=== PATIENT | female | born 1980 | race African-American/Black ===

== ENCOUNTER 2023-02-02 01:48 | Day surgery (SDC) | payer OTHER, SELFPAY ==
[2023-02-01 09:22] VITALS: BMI 40.6
--- NOTE | 2023-02-01 09:27 | PC.NURSE ---
Report to the Outpatient Waiting Room, entrance under the green pavilion located off [facility], at time 1300 on date 02/02/23. Planned Procedure Time: 1500. Time changes happen often and if your time is changed the preop area will call you the afternoon before. - You and your visitor will be asked to self-screen and do not enter if you have any COVID symptoms. - A mask is optional within the hospital at this time. Patients may have clear liquids (water, carbonated beverages, clear teas, apple juice) until 3 hours prior to surgery with a maximum of 20 ounces. - No food from midnight until time of surgery Take the following medications with a SIP of water the morning of surgery: N/A DO NOT STOP ANY OF YOUR OTHER PRESCRIPTION MEDICATIONS PRIOR TO SURGERY ?EXCEPT THE FOLLOWING Medications to discontinue per physician: N/A Date to take last dose: N/A Please no make-up, nail yoruba, hairspray, perfume, deodorant, or body powder the day of surgery. No jewelry (including any body piercings) or valuables the day of surgery, leave them at home. Please take a shower or bath the night before, or the morning of, surgery with an antibacterial soap. Wear comfortable, loose fitting clothing. - Jewelry must be removed prior to entering the operating room. Rings and piercings that are not removed may be cut off. - The hospital will not accept responsibility for valuables. - Please leave all valuables, including medications, at home the day of surgery. If you are going home after surgery, a licensed rickshaw driver must drive you home. - NO public transportation without another adult if you receive anesthesia. - We recommend that an adult stay with you for 24 hours following discharge. - We also recommend that you do not drive, make important decision, drink alcoholic beverages, or take any drugs that were not prescribed by your health care provider for at least 24 hours after your discharge time. Follow any additional instructions given to you from your surgeon. If you or anyone in your household have experienced Covid symptoms in the past week, please notify your surgeon or the nurse liaison at the phone number below for possible testing. Telephone instructions given to MAYANK FONSECA and asked if any additional questions and then verbalized understanding. Patient advised to call surgeon office or pre surgery nurse liaison [phone] if any additional questions.
== END 2023-02-02 13:15 | disposition home or self-care (01) ==
PROVIDERS: Visit Provider Urology
PROC: (CPT 52352; principal; 2023-02-02 15:00)
DX: N13.5 Crossing vessel and stricture of ureter without hydronephrosis (principal); Z53.9 Procedure and treatment not carried out, unspecified reason
CPT/HCPCS: 99211; G0463

== ENCOUNTER 2023-02-10 00:44 | Day surgery (SDC) | payer OTHER, SELFPAY ==
--- NOTE | 2023-02-03 12:06 | PC.NURSE ---
Report to the Outpatient Waiting Room, entrance under the green pavilion located off [facility], at time 1130 on date 02/10/23. Planned Procedure Time: 1330. Time changes happen often and if your time is changed the preop area will call you the afternoon before. - You and your visitor will be asked to self-screen and do not enter if you have any COVID symptoms. - A mask is optional within the hospital at this time. Patients may have clear liquids (water, carbonated beverages, clear teas, apple juice) until 3 hours prior to surgery with a maximum of 20 ounces. - No food from midnight until time of surgery Take the following medications with a SIP of water the morning of surgery: N/A DO NOT STOP ANY OF YOUR OTHER PRESCRIPTION MEDICATIONS PRIOR TO SURGERY ?EXCEPT THE FOLLOWING Medications to discontinue per physician: N/A Date to take last dose: N/A Please no make-up, nail slovak, hairspray, perfume, deodorant, or body powder the day of surgery. No jewelry (including any body piercings) or valuables the day of surgery, leave them at home. Please take a shower or bath the night before, or the morning of, surgery with an antibacterial soap. Wear comfortable, loose fitting clothing. - Jewelry must be removed prior to entering the operating room. Rings and piercings that are not removed may be cut off. - The hospital will not accept responsibility for valuables. - Please leave all valuables, including medications, at home the day of surgery. If you are going home after surgery, a licensed river driver must drive you home. - NO public transportation without another adult if you receive anesthesia. - We recommend that an adult stay with you for 24 hours following discharge. - We also recommend that you do not drive, make important decision, drink alcoholic beverages, or take any drugs that were not prescribed by your health care provider for at least 24 hours after your discharge time. Follow any additional instructions given to you from your surgeon. If you or anyone in your household have experienced Covid symptoms in the past week, please notify your surgeon or the nurse liaison at the phone number below for possible testing. Telephone instructions given to MAYANK FONSECA and asked if any additional questions and then verbalized understanding. Patient advised to call surgeon office or pre surgery nurse liaison [phone] if any additional questions.
[2023-02-03 12:09] VITALS: BMI 40.6
[2023-02-10] VITALS (10 sets, daily range): BP systolic 105–143; BP diastolic 70–96; PULSE 52–67; RESP 16–21; TEMP 36.4–37; O2SAT 98–100
--- NOTE | ~2023-02-10 | XR_ITS ---
EXAMINATION: XR cystogram DATE: 02/10/2023 13:02 INDICATION: Cystogram and right retrograde stent removal. TECHNIQUE: 87 fluoroscopic images of the abdomen and pelvis were obtained during procedure performed by Dr. Ngo. Radiologist was not present for the imaging or procedure. The amount of fluoroscopy ti me used during this procedure was 0.5 minutes. COMPARISON: None. FINDINGS: Initial image demonstrates surgical clip projecting over the central pelvis and a partially visualize d right internal ureteral stent with loops formed in the bladder and proximal stent extending beyond the cephalad margin of the [id number]. Subsequent images demonstrate removal of the stent and alicia ulation of the right ureter. Retrograde contrast injection demonstrates dilation of the right ureter and renal collecting system proximal to a stricture occurring at the level of L5. There are couple sm all filling defects along the wall of the dilated portion of the proximal half of the ureter. IMPRESSION: 1. Removal of a prior right internal ureteral stent. 2. 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 3. Few small peripheral mucosal-based filling defects along the wall of the dilated portion of the pr oximal right ureter which raises some concern for urothelial carcinoma. Alternatively along with a st ricture in this could be sequela prior reported radiation treatment. Reviewed, dictated and finalized at location A. IMPRESSION: 1. Removal of a prior right internal ureteral stent. 2. 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 3. Few small peripheral mucosal-based filling defects along the wall of the dil ated portion of the proximal right ureter which raises some concern for urothel ial carcinoma. Alternatively along with a stricture in this could be sequela pr ior reported radiation treatment.
--- NOTE | 2023-02-10 07:20 | WPDHPUPDATE1 ---
History and Physical Update Update Date/Time: 02/10/23 07:20 History and Physical has been reviewed, including an updated exam of the patient. There are NO changes in the patient's condition. Risks, benefits, and alternatives have been discussed and questions answered. Patient agrees to proceed with procedure.
--- NOTE | 2023-02-10 11:52 | WPDANESEPPF ---
Anes - Initial Pre Proc Eval Procedure: Operation Date: 02/10/23 13:30 Proposed Procedures p Cystoscopy, Right Retrograde Pyelogram, Right Stent Exchange - Carlos Ngo MD Date/Time: 02/10/23 11:52 Surgeon: Carlos Ngo MD Pre Op Diagnosis: right hydronephrosis Patient Data Age: 42 Gender: F Height: 1.75 m Weight: 124.8 kg Last Vital Signs Temp 37.0 C 02/10/23 11:30 Pulse 67 02/10/23 11:30 Resp 18 02/10/23 11:30 BP 143/96 H 02/10/23 11:30 Pulse Ox 100 02/10/23 11:30 O2 Del Method Room Air 02/10/23 11:30 Allergies Allergy/AdvReac Type Severity Reaction Status Date / Time prochlorperazine Allergy Dyspnea / Verified 02/10/23 11:35 [From Compazine] SOB Home Medications Medication Instructions Recorded Confirmed Type ondansetron HCl 8 mg tablet 8 mg PO Q8H #20 tabs 02/02/23 02/03/23 Rx Patient hx anesthesia problems: none Family hx anesthesia problems: none Results Review: All pre-operative results and documents have been reviewed as part of the pre-operative evaluation. [facility] Past Medical History Medical History (Updated 02/10/23 @ 11:52 by Ricci Velazquez MD) Cervical ca Obesity Surgical History Surgical History (Updated 02/10/23 @ 11:52 by Ricci Velazquez MD) S/P cystoscopy with ureteral stent placement Social History Social History Smoking status: Never smoker Alcohol intake: current Alcohol use details: 2/MONTH Substance use: never Substance use type: does not use Living arrangements: alone Spiritual care concerns: No Anes - Eval Final PreProcedure Day of Procedure 02/10/23 11:52 Patient weight: morbidly obese Heart: regular rate and rhythm Lungs: clear to auscultation Airway: Mallampati scale class II Neurological: alert and oriented Last oral intake: >/= 8 hours ASA classification: III Emergent: no Anesthetic plan: proceed Anesthesia type and monitoring: general LMA and standard monitoring Results Review: All pre-operative results and documents have been reviewed as part of the pre-operative evaluation. Informed Consent: The patient's anesthetic plan and its attendant risks and benefits were discussed with the patient/family/POA. Questions were solicited and answers provided to the satisfaction of the patient/family/POA.
[2023-02-10] MEDS: LACTATED RINGERS 1,000 ML 30 ML IV CONT (12:08)
[2023-02-10] MEDS: ONDANSETRON INJ 4 MG/2 ML VIAL IV PUSH (12:10)
--- NOTE | 2023-02-10 12:10 | PM.HPGS ---
History of Present Illness History of Present Illness Consent: Risks, benefits, and alternatives have been discussed and questions answered. Patient agrees to proceed with procedure. Chief complaint: right hydronephrosis Narrative: Ronda Stephenson is a 42 year old female with a known history of cervical cancer managed at [facility] in [place]. During the course of treatment she was found to have a right ureteral obstruction it has been managed with an indwelling right ureteral stent. It is now time for stent change. The time of stent change I will do retrograde pyelography determination if persistent stent is still necessary. She is aware this procedure injury to the ureter, hematuria recurrent stricture/obstruction Review of Systems Review of Systems: All systems reviewed & are unremarkable except as noted in HPI and below PMFSH Past Medical History Medical History (Updated 02/10/23 @ 12:11 by Carlos Ngo MD) Cervical ca Obesity Surgical History Surgical History (Updated 02/10/23 @ 11:52 by Ricci Velazquez MD) S/P cystoscopy with ureteral stent placement Social History Social History Smoking status: Never smoker Alcohol intake: current Alcohol use details: 2/MONTH Substance use: never Substance use type: does not use Living arrangements: alone Spiritual care concerns: No Meds Home Medications and Allergies Home Medications Medication Instructions Recorded Confirmed Type ondansetron HCl 8 mg tablet 8 mg PO Q8H #20 tabs 02/02/23 02/03/23 Rx Allergies Allergy/AdvReac Type Severity Reaction Status Date / Time prochlorperazine Allergy Dyspnea / Verified 02/10/23 11:35 [From Compazine] SOB Vital Signs Vital Signs - 24 hr 02/10/23 11:30 Temperature 98.6 F Pulse Rate 67 Respiratory Rate 18 Blood Pressure 143/96 H Pulse Oximetry 100 Oxygen Delivery Room Air Exam Const: General: no acute distress Resp: Effort & Inspection: normal respiratory effort GI: Inspection: non-distended GI Palp: No abdominal tenderness and No Guarding due to palpation present (GI) Auscultation: normal bowel sounds Assessment and Plan Assessment and plan (1) Hydronephrosis, right: Code(s): N13.30 - Unspecified hydronephrosis Status: Acute Assessment and Plan: cystoscopy, right ureteral stent removal, right retrograde pyelogram possible stent replacement
[2023-02-10] MEDS: ceFAZolin 3 GM/D5W 100 ML 100 ML IVPB (12:26)
--- NOTE | 2023-02-10 12:49 | W.PM.PROC2 ---
Procedure Note - Detailed Date of Procedure 02/10/23 Pre-op Diagnosis Right hydronephrosis, chronic right stent, hx. cervical ca. Post-op Diagnosis Same Procedure Performed Cystoscopy, right stent removal, right retrograde pyelogram and intraoperative cystogram Surgeon Carlos Ngo MD Anesthesia General Findings 1. Marginal narrowing right mid-uretera at L5/S-1 -> spontaneous drainage contrast after RPG 2. Mild hyperemia right post-lat. bladder wall - stent irritation vs. radiation cystitis 3. Cystogram bladder capacity 450cc with normal compliance. Description of Procedure patient is brought to the operative suite where she has prepped draped in routine sterile fashion in dorsal lithotomy position after the uneventful induction a general anesthetic. A 19 F rigid cystoscope was placed into her bladder. Tip of the indwelling stent is grasped and it is withdrawn with ease. Bladder mucosa shows some hyperemia in the right posterior lateral bladder wall. It is difficult to say if this is related to her chronic right ureteral stent or perhaps radiation cystitis at that site. The remainder of the bladder was normal without foreign body or neoplasm. There was a single orthotopic ureteral orifices bilaterally. An 8 F bulb-tipped catheter was used to obtain a right retrograde pyelogram. This shows a point of moderate narrowing at L5/S1. Careful inspection there does appear to be fairly prompt drainage of contrast from the collecting system across this narrowed segment of ureter. As I discussed with patient we to remove the stent plans to re-evaluate in 1-2 weeks. I then did an intraoperative cystogram. She seems to have a compliant bladder the generates little pressure had filling with 450 cc. Drains No Packing No Pathology None sent Complications No immediate complications Condition Stable
[2023-02-10] MEDS: fentaNYL CITRATE INJ (*CRX) 100 MCG/2 ML VIAL 25 MCG IV PUSH ×4 (13:14→13:47)
== END 2023-02-10 15:18 | disposition home or self-care (01) ==
PROVIDERS: Visit Provider Urology
PROC: (CPT 52352; principal; 2023-02-10 13:30)
DX: N13.30 Unspecified hydronephrosis (principal); N32.89 Other specified disorders of bladder; E66.01 Morbid (severe) obesity due to excess calories; Z68.41 Body mass index [BMI] 40.0-44.9, adult; Z85.41 Personal history of malignant neoplasm of cervix uteri
CPT/HCPCS: 52005; 51600; 74430; C1758; C1769; J0690; J1100; J2250; J2405; J2704; J3010; J7120; Q9966